=== PATIENT | female | born 1990 | race Caucasian/White ===

== ENCOUNTER 2017-10-07 10:24 | Emergency (ER) | payer SELFPAY ==
[~2017-10-07] VITALS: Ht 170.2 cm; Wt 66.0 kg
[2017-10-07 10:25] VITALS: BP 140/78; PULSE 61; RESP 16; TEMP 97.5; O2SAT 100
[2017-10-07 10:55] LABS: BLOOD, URINE NEG (NEG); GLUCOSE,URINE NEG (NEG); KETONE, URINE NEG (NEG); NITRITE,URINE NEG (NEG); PH, URINE 5.5 (5.0-8.5)
[2017-10-07 11:00] LABS: COMMENT (UR) CULT NOT INDICATED; CULTURE IF INDICATED CULT NOT INDICATED; SQUAMOUS EPITHELIAL CELL URINE 0-5 /hpf (0-5); URINE COLOR YELLOW (YELLW/STRAW); WBC, URINE 0-2 /hpf (0-5)
[2017-10-07] MEDS ORDERED: SODIUM CHLOR 0.9% 1000 ML INJ 1,000 ML IV ONE (11:06)
--- NOTE | 2017-10-07 11:09 | PD ---
HPI Chief Complaint: [employer] Problem/Complaint Time Seen by Provider: 11:06 Travel History International Travel<30 days: No Contact w/Intl Traveler<30days: No Traveled to known affect area: No History of Present Illness HPI 27-year-old female patient presents to the ER today, states that she has not had her menses in 60 days, has been having intermittent headaches for the last month, has had intermittent nausea and vomiting and feels abdominal discomfort especially in the lower abdomen. She has had mild diarrhea as well. She denies any fevers or any other symptoms. She states that she had seen her primary care doctor for the headaches and has seen the ER for headache, had a CAT scan done a few days ago which was negative. She also had negative test. Modifying Factors: None Associated Signs & Symptoms: Headaches, nausea, vomiting, diarrhea, missed menses, going on the last few months Risk Factors: History of headaches with menses PFSH Past Medical History Diminished Hearing: No Integumentary: Yes (MRSA) ?: Unknown LMP: 2 MONTHS : 1 Para: 0 Miscarriage: 0 : 0 Social History Alcohol Use: No Tobacco Use: No Substance Use: No Allergies-Medications (Allergen,Severity, Reaction): Coded Allergies: No Known Allergies (Unverified Adverse Reaction, Unknown, 10/07/17) Reported Meds & Prescriptions Reported Meds & Active Scripts Active Phenergan (Promethazine HCl) 25 Mg Tablet 25 Mg PO Q6H PRN Review of Systems Except as stated in HPI: all other systems reviewed are Neg Physical Exam Narrative GENERAL: Well-developed young female patient currently none acute distress. Awake and oriented 3. Sitting in a lighted room, no photophobia. SKIN: Focused skin assessment warm/dry. HEAD: Atraumatic. Normocephalic. EYES: Pupils equal and round. No scleral icterus. No injection or drainage. ENT: No nasal bleeding or discharge. Mucous membranes pink and moist. NECK: Trachea midline. No JVD. Supple. CARDIOVASCULAR: Regular rate and rhythm. No murmur appreciated. RESPIRATORY: No accessory muscle use. Clear to auscultation. Breath sounds equal bilaterally. GASTROINTESTINAL: Abdomen soft, non-tender, nondistended. Hepatic and splenic margins not palpable. Benign. MUSCULOSKELETAL: No obvious deformities. No clubbing. No cyanosis. No edema. NEUROLOGICAL: Awake and alert. No obvious cranial nerve deficits. Motor grossly within normal limits. Normal speech. PSYCHIATRIC: Appropriate mood and affect; insight and judgment normal. Data Data Last Documented VS Vital Signs Date Time Temp Pulse Resp B/P (MAP) Pulse Ox O2 Delivery O2 Flow Rate FiO2 10/07/17 12:41 47 16 113/69 (84) 100 Room Air 10/07/17 10:25 97.5 Orders Orders Urinalysis - C+S If Indicated (10/07/17 10:34) Ed Urine Pregnancytest Poc (10/07/17 10:34) Complete Blood Count With Diff (10/07/17 11:06) Comprehensive Metabolic Panel (10/07/17 11:06) Beta Hcg (Quant/Titer) (10/07/17 11:06) Ecg Monitoring (10/07/17 11:06) Iv Access Insert/Monitor (10/07/17 11:06) Oximetry (10/07/17 11:06) Sodium Chloride 0.9% Flush (Ns Flush) (10/07/17 11:15) Diphenhydramine Inj (Benadryl Inj) (10/07/17 11:15) Metoclopramide Inj (Reglan Inj) (10/07/17 11:15) Sodium Chlor 0.9% 1000 Ml Inj (Ns 1000 M (10/07/17 11:06) Ed Discharge Order (10/07/17 12:16) Labs Laboratory Tests Test 10/07/17 10:43 10/07/17 11:20 Urine Color YELLOW Urine Turbidity CLEAR Urine pH 5.5 Urine Specific [place] 1.016 Urine Protein NEG mg/dL Urine Glucose (UA) NEG mg/dL Urine Ketones NEG mg/dL Urine Occult Blood NEG Urine Nitrite NEG Urine Bilirubin NEG Urine Leukocyte Esterase TRACE Urine WBC 0-2 /hpf Urine Squamous Epithelial Cells 0-5 /hpf Microscopic Urinalysis Comment CULT NOT INDICATED White Blood Count 6.4 TH/MM3 Red Blood Count 4.34 MIL/MM3 Hemoglobin 12.7 GM/DL Hematocrit 38.4 % Mean Corpuscular Volume 88.5 FL Mean Corpuscular Hemoglobin 29.2 PG Mean Corpuscular Hemoglobin Concent 33.0 % Red Cell Distribution Width 12.4 % Platelet Count 188 TH/MM3 Mean Platelet Volume 10.4 FL Neutrophils (%) (Auto) 63.9 % Lymphocytes (%) (Auto) 28.0 % Monocytes (%) (Auto) 5.4 % Eosinophils (%) (Auto) 2.1 % Basophils (%) (Auto) 0.6 % Neutrophils # (Auto) 4.2 TH/MM3 Lymphocytes # (Auto) 1.8 TH/MM3 Monocytes # (Auto) 0.3 TH/MM3 Eosinophils # (Auto) 0.1 TH/MM3 Basophils # (Auto) 0.0 TH/MM3 CBC Comment DIFF FINAL Differential Comment Blood Urea Nitrogen 17 MG/DL Creatinine 0.67 MG/DL Random Glucose 90 MG/DL Total Protein 6.9 GM/DL Albumin 3.7 GM/DL Calcium Level 8.5 MG/DL Alkaline Phosphatase 62 U/L Aspartate Amino Transf (AST/SGOT) 41 U/L Alanine Aminotransferase (ALT/SGPT) 47 U/L Total Bilirubin 0.4 MG/DL Sodium Level 141 MEQ/L Potassium Level 3.7 MEQ/L Chloride Level 106 MEQ/L Carbon Dioxide Level 27.7 MEQ/L Anion Gap 7 MEQ/L Estimat Glomerular Filtration Rate 105 ML/MIN Human Chorionic Gonadotropin, Quant LESS THAN 1 MIU/ML MDM Medical Decision Making Medical Screen Exam Complete: Yes Emergency Medical Condition: Yes Medical Record Reviewed: Yes Interpretation(s) Laboratory Tests Test 10/07/17 10:43 10/07/17 11:20 Urine Leukocyte Esterase TRACE (NEG) Aspartate Amino Transf (AST/SGOT) 41 U/L (15-37) Differential Diagnosis Headaches, nausea, vomiting, diarrhea, abdominal discomfort: Migraine headaches versus gastroenteritis versus UTI versus versus irritable bowel disease Narrative Course Beta hCG is negative. Abdomen is fairly benign and I do not suspect an acute intra-abdominal process. She has no meningeal signs. Patient was given IV fluids, Reglan, and Benadryl in the ER. On reevaluation at 12 PM, she is feeling improved and is resting comfortably. At this point, lab work was discussed with the patient, did not show any significant metabolic issues or any signs of dehydration or sepsis. I suspect that she may have symptoms related to migraine headaches and my plan would be to give her symptomatic relief for headaches and have her follow-up with primary care physician, further workup including lab work and MRI may be warranted in this case. She should also follow-up with [facility] regarding menstrual irregularities. Return for any worsening in symptoms, fevers, vomiting, and as needed. The plan has discussed with her and she states understanding. Before patient's discharge, it was noted that her heart rate had dropped down to 47, and on reevaluation in the room, her heart rate is in the 50s. Patient was ambulatory into the restroom without issues. Patient states that sometimes she gets some dizziness with the headaches but reports that she is feeling improved. She reports no chest pains, palpitations, or any other symptoms. Patient is fairly young and healthy, as currently fairly relaxed after the medications, and at this point I would have her follow-up with primary care physician regarding her symptoms. They can reevaluate the heart rate there as well. She should return for any worsening in symptoms, chest discomfort, palpitations, dizziness, and as needed. The plan has been discussed with her and she states her understanding. Diagnosis Primary Impression: Headache Additional Impression: Menstrual irregularity Additional Instructions: You should follow-up with your [facility] and primary care physician. They may need to do further lab work and imaging such as MRI if symptoms persist. Med/Other Pt SpecificInfo: Prescription(s) given Scripts Promethazine (Phenergan) 25 Mg Tablet 25 MG PO Q6H Y for NAUSEA OR VOMITING, #7 TAB 0 Refills Prov: Adriano Medley MD 10/07/17 Disposition: 01 DISCHARGE HOME Condition: Stable Adriano Medley MD Oct 07, 2017 11:09
[2017-10-07] MEDS ORDERED: diphenhydrAMINE HCL 50 MG/ML VIAL IVP ONE (11:15)
[2017-10-07] MEDS ORDERED: METOCLOPRAMIDE HCL 10 MG/2 ML VIAL IVP ONE (11:15)
[2017-10-07] MEDS ORDERED: SODIUM CHLORIDE 0.9% FLUSH 10 ML FLUSH IVF PRN (11:15)
[2017-10-07 11:22] VITALS: O2SAT 98
[2017-10-07 11:34] LABS: CHLORIDE 106 MEQ/L (98-107); POTASSIUM 3.7 MEQ/L (3.5-5.1); SODIUM (NA) 141 MEQ/L (136-145)
[2017-10-07 11:39] LABS: ANION GAP 7 MEQ/L (5-15); BICARBONATE 27.7 MEQ/L (21.0-32.0); BLOOD UREA NITROGEN 17 MG/DL (7-18)
[2017-10-07 11:41] LABS: ALT (GPT) 47 U/L (10-53)
[2017-10-07 11:42] LABS: AST (GOT) 41 U/L (15-37); GLOMERULAR FILTRATION RATE 105 ML/MIN (>89)
[2017-10-07 11:43] LABS: TOTAL BILIRUBIN ADULT 0.4 MG/DL (0.2-1.0)
[2017-10-07 11:45] VITALS: BP 110/66; PULSE 72; RESP 16; O2SAT 98
[2017-10-07 11:45] LABS: ALKALINE PHOSPHATASE 62 U/L (45-117)
[2017-10-07 11:47] LABS: AUTOMATED NEUTROPHIL # 4.2 TH/MM3 (1.8-7.7); BASOPHIL % 0.6 % (0.0-2.0); BETA HCG QUANT LESS THAN 1 MIU/ML (0-5); EOSINOPHIL # 0.1 TH/MM3 (0-0.4); EOSINOPHIL % 2.1 % (0.0-4.0); HEMATOCRIT 38.4 % (35.0-46.0); HEMO FLAGS DIFF FINAL; LYMPHOCYTE # 1.8 TH/MM3 (1.0-4.8); MEAN CELL VOLUME 88.5 FL (80.0-100.0); MEAN CORPUSCULAR HEMOGLOBIN 29.2 PG (27.0-34.0); MONO % 5.4 % (0.0-8.0); NEUT % 63.9 % (16.0-70.0); PLATELET COUNT 188 TH/MM3 (150-450); RED BLOOD COUNT 4.34 MIL/MM3 (4.00-5.30); RED CELL DISTRIBUTION WIDTH 12.4 % (11.6-17.2); WHITE BLOOD COUNT 6.4 TH/MM3 (4.0-11.0)
[2017-10-07 12:13] VITALS: BP 92/50; PULSE 45; RESP 16; O2SAT 97
[2017-10-07] MEDS ORDERED: PROM25TA10 PO (12:20)
[2017-10-07 12:41] VITALS: BP 113/69; PULSE 47; RESP 16; O2SAT 100
[2017-10-07 12:53] VITALS: BP 108/63; PULSE 45; RESP 16; O2SAT 100
== END 2017-10-07 13:02 | disposition home or self-care (01) ==
LOC: PHED 10:24
DX: R51 Headache (principal); N92.6 Irregular menstruation, unspecified
CPT/HCPCS: 80053; 81001; 84702; 84703; 85025; 96374; 96375; 99284; J1200; J2765; J7030